=== PATIENT | female | born 1980 | race Caucasian/White ===

== ENCOUNTER 2021-09-25 16:39 | Emergency (ER) | payer OTHER, SELFPAY ==
--- NOTE | ~2021-09-25 | XR_ITS ---
EXAMINATION: XR hand LT min 3V INDICATION: Left hand pain TECHNIQUE: Three views of the left hand are obtained. COMPARISON: None available FINDINGS: There is mild soft tissue swelling of the third finger. Bone alignment is normal. There is no fracture. IMPRESSION: 1. Mild soft tissue swelling of the third finger without acute osseous abnormality. Reviewed, dictated and finalized at location B. RESEARCH SCIENTIST IMPRESSION: 1. Mild soft tissue swelling of the third finger without acute osseous abnormal ity.
--- NOTE | 2021-09-25 17:15 | ED.EXTPRO ---
HPI - Extremity Problem General Chief complaint: Unspecified Stated complaint: lt hand, middle finger Time Seen by Provider: 09/25/21 17:15 Source: patient Mode of arrival: ambulatory History of Present Illness HPI Narrative: this is a 41-year-old female that presents with swelling of her left middle finger with some point tenderness has good range of motion unclear if there has been any injuries there is no numbness or tingling there is no redness chest swelling and point tenderness a strong brisk radial pulse with no numbness or tingling in her wrist or fingers. MD Complaint: extremity pain and extremity swelling Onset (ago): day(s) Pain Consistency: constant Location: left Severity scale (1-10): 4 Quality: aching Review of Systems Review of Systems: All systems reviewed & are unremarkable except as noted in HPI and below PMFSH Past Medical History Medical History Patient denies medical problems Exam Const: General: no acute distress and alert Orientation/consciousness: patient oriented x3 HENMT: Head: normal to inspection Eyes: Conjunctivae: conjunctivae normal Pupils: Equal, round and reactive pupils present Direct Ophthalmoscopy: no photophobia Neck: Neck: normal visual inspection, no lymphadenopathy and no meningeal signs Chest: Chest palpation & inspection: normal inspection of the chest Resp: Effort & Inspection: normal respiratory effort Auscultation: clear to auscultation bilaterally Cardio: Rate: regular rate Rhythm: regular rhythm GI: GI Palp: Yes Soft to palpation Percussion: Yes normal to percussion Back/Spine/Pelvis: Back: no CVA tenderness Skin: Other: left middle finger with some mild swelling and point tenderness with good range of motion Neuro: General: patient oriented x3 and moves all extremities Extrem: General: normal to inspection Psych: Mental Status: mental status grossly normal Affect: normal affect Course Course Emergency Course: x-ray performed and reviewed with patient which shows no osseous abnormality with some mild soft tissue swelling Critical Care Time Critical Care Time Critical Care Time: No Discharge Plan Discharge Clinical Impression: Finger swelling Patient Disposition: Home, Self-Care Condition: Stable Instructions: Antibiotic Form, Swollen Joint (ED) Additional Instructions: advised to follow-up with primary care physician in 1 to 2 weeks further evaluation and treatment. take medicine as prescribed. Prescriptions: New naproxen 500 mg tablet 500 mg PO BID Qty: 7 RF: 0 Follow-up/Referrals: Meagan,FREEMAN Meeks [Primary Care Provider] - Time of Disposition: 17:21
[2021-09-25 17:31] VITALS: PULSE 88; RESP 18; TEMP 36.6; O2SAT 95
[2021-09-25 17:34] VITALS: PULSE 82; RESP 18; TEMP 36.6; O2SAT 96
== END 2021-09-25 17:38 | disposition home or self-care (01) ==
PROVIDERS: Emergency Provider Emergency Medicine; PCP Physician Assistant
DX: M79.89 Other specified soft tissue disorders (principal)
CPT/HCPCS: 73130; 99283